=== PATIENT | female | born 1980 | race Two or more races ===

== ENCOUNTER 2024-01-20 08:10 | Day surgery (SDC) | payer MEDICAID, SELFPAY ==
--- NOTE | 2024-01-19 07:00 | EKG_ITS ---
[facility] (Formerly [facility]) Test Date: 2024-01-19 Pat Name: DON GAONA Department: Room: - Gender: Female Tongue Binder: DAVID : 1980 Requested By: Clinton Cid Order Number: [id number] Reading MD: Clinton Cid Measurements Intervals [place] Rate: 57 P: 32 WV: 150 QRS: 35 QRSD: 97 T: 25 QT: 405 QTc: 397 Interpretive Statements SINUS BRADYCARDIA No previous ECG available for comparison /[id number]/S0/[id number]
[2024-01-19 08:26] VITALS: BMI 36.6
[2024-01-19 08:55] LABS: Basophils % (Auto) 1 % (0-2.5); Eosinophils # (Auto) 0.1 Thou/mm3 (0.0-0.5); Eosinophils % (Auto) 1 % (0-10); Hematocrit 37.2 % (36.0-46.0); Hemoglobin 12.1 g/dL (12.0-16.0); Immature Granulocytes % (Auto) 0 % (0-0); Immature Granulocytes Auto 0.02 Thou/mm3 (0.00-0.00); Lymphocytes % (Auto) 43 % (10-50); Mean Corpuscular HGB Conc 32.5 g/dl (31.0-37.0); Mean Corpuscular Hemoglobin 27.8 pg (25.0-35.0); Mean Corpuscular Volume 86 fL (80-100); Monocytes # (Auto) 0.4 Thou/mm3 (0.0-0.8); Monocytes % (Auto) 6 % (0-12); Neutrophils # (Auto) 3.3 Thou/mm3 (1.8-7.7); Neutrophils % (Auto) 49 % (37-80); Nucleated Red Blood Cell % 0 /100 WBC (0); Platelet Count 202 Thou/mm3 (140-440); Red Blood Count 4.35 Miln/mm3 (4.00-5.20); White Blood Count 6.8 Thou/mm3 (3.6-11.0)
[2024-01-19 09:08] LABS: Partial Thromboplastin Time 28.8 Seconds (22.0-36.0); Prothrombin Time 10.5 Seconds (9.0-12.2)
[2024-01-19 09:11] LABS: Anion Gap 6 (7-16); BUN/Creatinine Ratio 17 Ratio (12-20); Blood Urea Nitrogen 12 mg/dL (9-23); Calcium 9.4 mg/dL (8.3-10.6); Carbon Dioxide 27.4 mMol/L (20.0-31.0); Chloride 105 mMol/L (98-107); Creatinine (Component) 0.7 mg/dL (0.6-1.3); Estimated Creatinine Clearance 110.8 mL/min (>60); Glucose 96 mg/dL (74-106); Osmolality,Calculated 275 (275-295); Potassium 3.9 mMol/L (3.4-5.1); Sodium 138 mMol/L (136-145); eGFR > 60 See Note
--- NOTE | 2024-01-19 15:33 | SUR.PREOP ---
Pt's Con was notified to bring pt tomorrow for surgery at 0830.
[2024-01-20] VITALS (13 sets, daily range): BP systolic 111–137; BP diastolic 55–85; PULSE 58–78; RESP 13–18; TEMP 36.1–36.6; O2SAT 98–100; BMI 33.2
--- NOTE | 2024-01-20 11:09 | PD.SUROPNT ---
Date of Procedure 01/20/24 Pre Op Diagnosis Symptomatic varicose veins left lower extremity Post Op Diagnosis Same as preop diagnosis Procedure Stab excision of varicose veins left lower extremity through 32 incisions Findings All marked varicose veins were either removed or disrupted Procedure Description With the patient standing in the preop area all varicose veins to be removed or disrupted were carefully marked with a sharpie pen in the left lower extremity. The patient was then brought to the operating room and general anesthesia was induced. The left lower extremity was sterilely prepped and draped. A timeout was performed. The vein excision procedure was performed by making a small skin sumit with a #11 blade and all marked areas and then excising or disrupting the veins. When all veins were either removed or disrupted hemostasis was obtained and the leg was cleaned. Steri-Strips were then applied to all the incisions. The leg was then wrapped with sterile gauze followed by an Julien bandage. The patient woke up from anesthesia moved to recovery in stable Anesthesia other (Laryngeal mask anesthesia) Pathology / specimen Other (Left leg varicose veins) Estimated Blood Loss 150 Condition Stable Disposition PACU Surgeon Clinton Toure MD Surgical Staff Operation Date: 01/20/24 10:45 Case Staff Anesthesiologist: Alf Vizcaino RN First Assistant: Namrata Orlando
--- NOTE | 2024-01-20 11:26 | SUR.PHASEI ---
Addendum entered by Mary King RN 01/20/24 11:50: correction report from Apurva STRAUSS Original Note: 1126 Patient arrived to recovery resting comfortably in [place], on oxygen 6L via oxy mask, drowsy and able to arouse with verbal prompting, breathing unlabored, vital signs stable, denies pain, dressing intact to left lower leg; steri-stripgs, abd, kerlix roll, sara wraps, no bleeding noted, patient has good circulation to left one extremity; skin color normal for patient, warm to touch and capillary refill to left toes is one second, lung sounds clear upon auscultation, report received from Jordan BURKS/Dr. Vizcaino and Pat STRAUSS
[2024-01-20] MEDS: fentaNYL CIT INJ 50 mCg/ML AMP 2ML 25 MCG IV ×3 (11:42→12:07)
--- NOTE | 2024-01-20 12:00 | SUR.PHASEII ---
1200 patient eating ice chips tolerating well
--- NOTE | 2024-01-20 12:55 | SUR.PHASEII ---
1247 Discharge instructions given to patient, patient disconnected from the monitor and belongings to get dressed, patient began bleeding for incision on lower left leg, patient held 1249 Dr. Toure notidied, he stated he would come see the patient after he was done with his surgery 1255 Patient stopped bleeding, awaiting for Dr. Toure to come assessment patient and give order for redressing surgical site
--- NOTE | 2024-01-20 13:01 | SUR.PHASEI ---
1301 Report given to Judy STRAUSS
--- NOTE | 2024-01-20 13:01 | SUR.PHASEII ---
1301 Report given to Judy STRAUSS
--- NOTE | 2024-01-20 13:01 | SUR.PHASEII ---
received report from addie galvez at bedside. undressed leg. assessed by doctor. pain pill ordered and ordered to redress leg using coban. will discharge as ordered.
[2024-01-20] MEDS: HYDROcodone/APAP 10/325 TAB PO (13:18)
--- NOTE | 2024-01-20 13:35 | SUR.PHASEII ---
dressing report to nurse addie pritchard pt denies pain and nausea. vss. dressing changed as ordered.
--- NOTE | 2024-01-20 13:35 | SUR.PHASEII ---
2819 Report received from Judy STRAUSS
--- NOTE | 2024-01-20 13:45 | SUR.PHASEII ---
1345 Patient meets discharge criteria from recovery, awake and alert, breathing unlabored, vital signs stable, denies pain, dressing intact; no bleeding noted, denies nausea, patient assisted with dressing into her clothing by staff, discharge instructions given earlier via telephone with hanger off ID# [id number] bitumastic applier name Con, to patient and patients , signed discharge instructions. patient given all her belongings prior to discharge, transported via wheelchair and left in a private vehicle.
== END 2024-01-20 13:45 | disposition home or self-care (01) ==
PROVIDERS: PCP Family Medicine; Referring Provider Surgery Vascular Surgery; Visit Provider Surgery Vascular Surgery
PROC: (CPT 36475; principal; 2024-01-20 10:45)
DX: I83.12 Varicose veins of left lower extremity with inflammation (principal); Z01.810 Encounter for preprocedural cardiovascular examination
CPT/HCPCS: 37765; 37766; 36415; 80048; 81025; 85025; 85610; 85730; 93005; A4217; C1894; J0131; J0690; J1100; J1885; J2250; J2405; J2704; J3010; J7050; A9270

== ENCOUNTER 2024-04-20 08:55 | Day surgery (SDC) | payer MEDICAID, SELFPAY ==
[2024-04-18 08:23] VITALS: BMI 34.1
[2024-04-18 09:52] LABS: Basophils # (Auto) 0.1 Thou/mm3 (0.0-0.2); Basophils % (Auto) 1 % (0-2.5); Eosinophils % (Auto) 1 % (0-10); Hematocrit 38.3 % (36.0-46.0); Hemoglobin 12.5 g/dL (12.0-16.0); Immature Granulocytes % (Auto) 0 % (0-0); Immature Granulocytes Auto 0.01 Thou/mm3 (0.00-0.00); Lymphocytes # (Auto) 3.4 Thou/mm3 (1.0-4.8); Lymphocytes % (Auto) 48 % (10-50); Mean Corpuscular HGB Conc 32.6 g/dl (31.0-37.0); Mean Corpuscular Hemoglobin 28.3 pg (25.0-35.0); Mean Corpuscular Volume 87 fL (80-100); Monocytes # (Auto) 0.5 Thou/mm3 (0.0-0.8); Monocytes % (Auto) 7 % (0-12); Neutrophils # (Auto) 3.1 Thou/mm3 (1.8-7.7); Neutrophils % (Auto) 44 % (37-80); Nucleated Red Blood Cell % 0 /100 WBC (0); Platelet Count 193 Thou/mm3 (140-440); Red Blood Count 4.42 Miln/mm3 (4.00-5.20)
[2024-04-18 10:02] LABS: Partial Thromboplastin Time 28.4 Seconds (22.0-36.0); Prothrombin Time 10.7 Seconds (9.0-12.2)
[2024-04-18 10:18] LABS: Anion Gap 8 (7-16); BUN/Creatinine Ratio 18 Ratio (12-20); Blood Urea Nitrogen 11 mg/dL (9-23); Calcium 9.7 mg/dL (8.3-10.6); Carbon Dioxide 26.9 mMol/L (20.0-31.0); Chloride 104 mMol/L (98-107); Creatinine (Component) 0.6 mg/dL (0.6-1.3); Estimated Creatinine Clearance 142.5 mL/min (>60); Glucose 90 mg/dL (74-106); Osmolality,Calculated 276 (275-295); Potassium 4.3 mMol/L (3.4-5.1); Sodium 139 mMol/L (136-145); eGFR > 60 See Note
--- NOTE | 2024-04-19 13:57 | SUR.PREOP ---
Pt notified to come in at 0900 tomorrow for surgery.
[2024-04-20] VITALS (12 sets, daily range): BP systolic 115–141; BP diastolic 57–94; PULSE 58–73; RESP 12–19; TEMP 36.3–36.7; O2SAT 97–100
[2024-04-20] MEDS: RINGERS LACTATED 1000 ML 1,000 ML 20 ML IV (09:27)
--- NOTE | 2024-04-20 11:29 | PD.SUROPNT ---
Date of Procedure 04/20/24 Pre Op Diagnosis Symptomatic varicose veins right lower extremity Post Op Diagnosis Same as preop diagnosis Procedure Ligation of the greater saphenous vein right lower extremity with right lower extremity varicose vein excisions Findings The greater saphenous vein was successfully flushed ligated and all marked veins were successfully removed or disrupted through 61 incisions Procedure Description With the patient standing in the preop area all varicose veins to be excised were marked with a sharpie pen. The patient was brought to the operating room general anesthesia was induced. The right lower extremity sterilely prepped and draped. A timeout was performed. The greater saphenous vein high ligation was performed first by making a small transverse incision in the groin subcutaneous tissues were dissected with electrocautery and the greater saphenous vein was exposed and flush ligated onto the saphenofemoral junction with a 2-0 silk tie. This wound was then closed in layers with 3-0 Vicryl the subcutaneous tissues, 4 Monocryl in the skin and a Dermabond dressing was applied. Attention was then turned to the marked varicose veins which were removed by making a small skin sumit then bluntly enlarging this with a mosquito clamp and sequentially excising or disrupting all the veins. When all veins had been treated the leg was cleaned and Steri-Strips were used to reapproximate the incisions. A sterile dressing was then applied followed by an Julien wrap the patient woke up from anesthesia and was moved to recovery in stable condition. 61 incisions were performed to do the vein excisions Anesthesia other (Laryngeal mask anesthesia) Pathology / specimen Other (Right lower extremity varicose veins) Estimated Blood Loss 150 Condition Stable Disposition PACU Surgeon Clinton Toure MD Surgical Staff Operation Date: 04/20/24 11:15 Case Staff Anesthesiologist: Alf Vizcaino RN First Assistant: Namrata Roger
--- NOTE | 2024-04-20 11:47 | SUR.PHASEI ---
pt received from OR in recovery bay 4. pt asleep but responds to voice, breathing unlabored on room air. v/s stable. pt dressing to right lower extremity cdi. report received from Karina STRAUSS and Dr. Vizcaino.
--- NOTE | 2024-04-20 11:51 | SUR.PHASEI ---
pt resting in [place] with eyes closed, responds to voice, breathing unlabored, dressing to right lower extremity clean, dry, and intact, report from Edin STRAUSS
[2024-04-20] MEDS: fentaNYL CIT INJ 50 mCg/ML AMP 2ML 25 MCG IV ×4 (12:00→13:13)
--- NOTE | 2024-04-20 12:22 | SUR.PHASEI ---
Report to Edin STRAUSS
--- NOTE | 2024-04-20 12:35 | SUR.PHASEII ---
pt able to tolerate oral fluids without difficulty swallowing or nausea/vomiting.
--- NOTE | 2024-04-20 14:18 | SUR.PHASEII ---
pt awake and alert, breathing unlabored on room air. v/s stable. pt able to ambulate to wheelchair with steady gait. after ambulation dressing inspected no signs of bleeding noted. pt dressing to right lower extremity cdi. d/c instructions given with in room Con using welding machine operator electron beam sp 423w, all questions answered. pt d/c via wheelchair with all belongings.
== END 2024-04-20 14:18 | disposition home or self-care (01) ==
PROVIDERS: PCP Family Medicine; Referring Provider Surgery Vascular Surgery; Visit Provider Surgery Vascular Surgery
PROC: (CPT 36475; principal; 2024-04-20 11:00)
DX: I87.323 Chronic venous hypertension (idiopathic) with inflammation of bilateral lower extremity (principal)
CPT/HCPCS: 37700; 37766; 36415; 80048; 85025; 85610; 85730; A4217; C1894; J0690; J1885; J2250; J2405; J2704; J2765; J3010; J7050; J7120